=== PATIENT | female | born 1990 | race Caucasian/White ===

== ENCOUNTER 2016-10-16 11:12 | Emergency (ER) | payer OTHER ==
--- NOTE | ~2016-10-16 | CR63 ---
[facility]. [facility] A Service of [facility] & [facility] RADIOLOGY TEXT RESULTS PATIENT: SUSANNA STORM LOCATION: SED : 89 UNIT #: [id number] AGE: [address]: Jignesh Torres MD SEX: F ORDER DR: [id number] [address] [address] [id number] E MR#: [id number] Acc #: [id number] NAME: SUSANNA STORM : 1990 SEX: F STUDY DATE/TIME: 10/16/2016 11:18 UNIT: SED ROOM: STUDY DESCRIPTION: CR Chest 2 View Attending Physician: Jignesh Torres M.D. Ordering Physician: Jignesh Torres M.D. Primary Care Physician: Nicolas Wallace M.D. MEDICAL IMAGING REPORT This report is preliminary unless electronic signature is present. EXAM Two-view chest 10/16/2016 HISTORY 25-year-old female with cough for a few weeks. Shortness of breath. COMPARISON Chest 08/10/2013 FINDINGS 2 views of the chest demonstrate clear lungs. No pleural effusion or pneumothorax. Heart size and mediastinum are normal. Pulmonary vasculature normal. IMPRESSION No acute cardiopulmonary findings. Dictated by... Jose Santana M.D. THIS IS AN ELECTRONICALLY VERIFIED REPORT Jose Santana M.D. at 10/17/2016 8:44 AM MANDY/melissa TD: 10/16/2016 22:33 JOB #: [id number] MEDICAL IMAGING REPORT Page 1 of 1
[~2016-10-16 11:12] MED LIST: ABILIFY PO; ACETAMINOPHEN PO; ADVAIR 2501 DISK W/D PO; ALBUTEROL17 GM INH; ANTI-FUNGAL15 GM TOP; AUGMENTIN; BACTRIM DS TABL1 TA1 PO; BACTRIM DS TABL1 TA2 PO; BENADRYL; BENADRYL25 M1 PO; CAFFEINE200 MG; CLEOCIN150 M2 PO; DICLOFENAC PO; FIORINAL/CODEIN1 CA1 PO; FLEXERIL; FLEXERIL10 M1 PO; FLEXERIL10 MG; IBUPROFEN PO; IBUPROFEN600 MG PO; IBUPROFEN800 MG; IBUPROFEN800 MG PO; LIDOCAINE VISCOU1 ML PO; LORTAB 5-325 M1 EACH; LORTAB 5-325 M1 EACH PO; METHOTREXATE; METHOTREXATE2.5 MG PO; NO MEDICATIONS; OXYCODONE HCL5 M1 PO; PHENERGAN PO; PHENERGAN25 M1 PO; PHENERGAN25 MG PO; PREDNISONE PO; PRENATAL MULTIV1 TA1 PO; PRILOSEC PO; PROMETHAZINE D118 ML PO; PYRIDIUM PO; ROBITUSSIN100 MG/52 PO; TAMIFLU75 M1 PO; TESSALON200 MG PO; TOPAMAX PO; TRAMADOL HCL50 M2 PO; TYLENOL #3 PO; ULTRAM PO; VITANATAL OB +1 EACH PO; VOLTAREN50 MG PO; VOLTAREN75 MG PO; ZANAFLEX4 M1 PO; ZITHROMAX PO; ZOFRAN ODT4 MG PO; [UNRECOGNIZED DRUG - OTHER]; [UNRECOGNIZED DRUG - REMARK]
[2016-10-23] MEDS ORDERED: ZOFRAN PO (21:51)
== END 2016-10-16 12:25 | disposition home or self-care (01) ==
LOC: SED 11:12
DX: S29.012A Strain of muscle and tendon of back wall of thorax, initial encounter (principal); J20.9 Acute bronchitis, unspecified; R09.1 Pleurisy; F17.210 Nicotine dependence, cigarettes, uncomplicated; Z98.51 Tubal ligation status; X58.XXXA Exposure to other specified factors, initial encounter; Y93.89 Activity, other specified; Y92.009 Unspecified place in unspecified non-institutional (private) residence as the place of occurrence of the external cause
CPT/HCPCS: 71020; 94640; 99284

== ENCOUNTER → 2016-10-18 | Day surgery (SDC) | payer OTHER ==
[~2016-10-18] MED LIST changes: +ALBUTEROL17 GM; +DEPAKOTE; +PERCOCET 7.5-31 EACH; +SEROQUEL; +ZOFRAN PO; +ZOLOFT
--- NOTE | ~2016-10-18 | OR ---
Unit #: [id number] #: [id number] Patient: SUSANNA STORM [id number] [address] [place], [place] [address] [id number] O MR#: [id number] NAME: SUSANNA STORM ROOM: Date of Procedure: 10/18/2016 Admission Date: 10/18/2016 Surgeon: Jose Madrid Jr., M.D. : 1990 Attending Physician: Jose Madrid Jr., M.D. Referring Physician: Jose Madrid Jr., M.D. Primary Care Physician: Nicolas Wallace M.D. OPERATIVE REPORT INDICATIONS FOR PROCEDURE The patient is a 25-year-old white female, who has been having intermittent right upper quadrant and mid epigastric abdominal pain compatible with biliary colic. She has documented gallstones. She is brought in this time for laparoscopic cholecystectomy at her request. She understands the procedure including the risks, including that of common duct injury, biliary leak, and bleeding, and intra-abdominal organ injury, and consents. PREOPERATIVE DIAGNOSES Biliary colic with chronic cholecystitis and cholelithiasis. POSTOPERATIVE DIAGNOSES Biliary colic with chronic cholecystitis and cholelithiasis, noting a small contracted gallbladder with multiple large stones. The rest of the internal abdominal exam with the laparoscope was not remarkable. ANESTHESIA General with endotracheal intubation and 0.5% Marcaine with epinephrine locally. PROCEDURE PERFORMED Laparoscopic cholecystectomy. DESCRIPTION OF PROCEDURE The patient was positioned in supine position. After being anesthetized and intubated, she was prepped and draped in routine fashion for laparoscopic cholecystectomy. A small infraumbilical incision was made approximately 1 cm in length. This was carried down to the fascia. The fascia was lifted between 2 Tonie clamps and a Veress needle introduced into the abdomen. The abdomen was then inflated with CO2 gas. A 5-mm port was introduced in the abdomen followed by the camera. There was no evidence of any injury related to introduction of the port of the Veress needle. Brief intra-abdominal exploration was carried out. The patient was noted to have a slightly fatty liver with what appeared to be a whitish chronic inflamed gallbladder. Two 5-mm ports were placed laterally and an 11-mm port just to the right of the upper midline. The gallbladder was lifted. Dissection was carried out the triangle of Calot. Cystic duct and cystic artery were both identified. Cystic duct was small 1 to 2 mm in diameter, was hemoclipped x4 and divided approximately 1 cm from its junction with the common duct. The common duct appeared normal. Cystic artery was identified, hemoclipped x3, and divided. The Unit #: [id number] #: [id number] Patient: SUSANNA STORM gallbladder was then removed from its bed with the hook cautery using a current of 20. After it was released, it was removed through the upper midline incision along with grasping clamp and the port. The port was replaced. The gallbladder sent to pathology and the subhepatic space checked. There was no evidence of any bleeding from the gallbladder bed. The clips on cystic duct and cystic artery were intact with no evidence of any leak or bleeding. At this point, the CO2 was expressed from the abdomen. Sponge count was correct x3 and the fascia in the larger port site was approximated with the neoClose technique. The ports were removed. There was no evidence of any bleeding from the port sites. The port sites were injected with 0.5% Marcaine with epinephrine locally. The wounds were irrigated. After hemostasis achieved with Bovie cautery, the skin edges were approximated with stainless-steel skin clips and skin stapling device. Sterile dressings were applied externally. Estimated blood loss minimal, less than 30 mL. The patient received less than 1000 mL crystalloid solution during the procedure. Sponges and instrument counts were correct x3. No drains used. No complications. The patient was taken to the recovery room with stable vital signs in satisfactory condition. Dictated by... Jose Madrid Jr., M.D. JMB/brittany TD: 10/18/2016 22:52 JOB #: [id number] OPERATIVE REPORT Page 1 of 1 X Jose Madrid MD X PROCEDURE OPERATIVE NOTE
[2016-10-18 10:28] LABS: ALBUMIN SERUM 3.9 g/dL (3.5-5.0); BILIRUBIN,TOTAL 0.4 mg/dL (0.2-2.0); BUN/CREATININE RATIO 16.66; CALCIUM SERUM 9.3 mg/dL (8.4-10.2); CREATININE SERUM 0.6 mg/dL (0.6-1.4); GLOM FILT RATE Estimated 125.8 mL/min (>60); POTASSIUM 4.3 mmol/L (3.5-5.1)
== END | disposition home or self-care (01) ==
LOC: CSUR 09:18
PROVIDERS: Surgery
DX: K80.10 Calculus of gallbladder with chronic cholecystitis without obstruction (principal); K21.9 Gastro-esophageal reflux disease without esophagitis; J45.909 Unspecified asthma, uncomplicated; F17.210 Nicotine dependence, cigarettes, uncomplicated; Z98.51 Tubal ligation status; Z98.890 Other specified postprocedural states
CPT/HCPCS: 80053; 88304; J0131; J0330; J1100; J1170; J1610; J1644; J1885; J2250; J2405; J2710; J3010

== ENCOUNTER 2016-10-19 20:12 | Emergency (ER) | payer OTHER ==
--- NOTE | ~2016-10-19 | CT2 ---
[facility] A Service of [facility] & [facility] RADIOLOGY TEXT RESULTS PATIENT: SUSANNA STORM LOCATION: [facility] : [birth year] UNIT #: [id number] AGE: [address]: Bety Gill MD SEX: F ORDER DR: [id number] [facility] [address] [place], [place] [address] [id number] E MR#: [id number] Acc #: [id number] NAME: SUSANNA STORM : 1990 SEX: F STUDY DATE/TIME: 10/19/2016 21:28 UNIT: [facility] ROOM: STUDY DESCRIPTION: CT Abd and Pelv W Cont Attending Physician: Bety Gill M.D. Ordering Physician: Bety Gill M.D. Primary Care Physician: Nicolas Wallace M.D. MEDICAL IMAGING REPORT This report is preliminary unless electronic signature is present EXAM CT of the abdomen and pelvis with contrast HISTORY Gallbladder surgery yesterday. Patient has been having abdominal pain and bleeding from her incision. TECHNIQUE Axial CT images were obtained from the dome of the diaphragm through the symphysis pubis following the administration of intravenous contrast material. This CT exam was performed with one or more of the following radiation dose reduction techniques: automatic exposure control, adjustment of mA and/or kV according to patient size, and iterative reconstruction. FINDINGS Images through the lung bases demonstrates some bibasilar atelectasis, as well as some mosaic attention which could reflect some air trapping. Patient does have some free intraperitoneal air, likely related to recent surgery. The gallbladder is surgically absent. Common bile duct appears prominent measuring up to 1.5 cm in size. No obvious obstructing lesion is seen. Correlation with liver function test is suggested. Again, patient is status post cholecystectomy. No focal fluid collection is seen within the operative bed. There is some soft tissue stranding within the anterior abdominal wall in keeping with history of recent surgery. Spleen is within normal limits as are the stomach and proximal small bowel. Adrenal glands and pancreas are within normal limits. Kidneys also appear normal. A small amount of blood is seen tracking along the right pericolic gutter, again likely related to recent surgery. Some additional stranding seen within the umbilicus where the patient likely had a STS. [facility] A Service of [facility] RADIOLOGY TEXT RESULTS PATIENT: SUSANNA STORM LOCATION: [facility] : [birth year] UNIT #: [id number] AGE: [address]: Bety Gill MD SEX: F ORDER DR: laparoscopy port. There is some free fluid within the pelvis. Bilateral tubal ligation clips are noted. Urinary bladder appears unremarkable. Ovaries are also within normal limits. I do not see any mechanical bowel obstruction. The appendix is visualized and is within normal limits. Review of bony windows does not demonstrate any aggressive osseous abnormalities. Bilateral pars defects are noted at L5-S1. IMPRESSION 1. Patient is status post cholecystectomy. No focal fluid collections are seen within the operative bed. There is a small amount of intraperitoneal free air in keeping with history of recent surgery. Post-surgical changes are seen within the anterior abdominal wall and along the right flank. Patient does have a small amount of hemorrhagic fluid tracking along the right pericolic gutter. 2. There is free fluid seen within the pelvis. Findings related to recent surgery. 3. The appendix is visualized and is within normal limits. 4. There is dilatation of the common bile duct. Similar findings have been present on exams dating back to 2015. I would suggest correlation with liver function tests. Dictated by... Luma Kirk M.D. THIS IS AN ELECTRONICALLY VERIFIED REPORT Luma Kirk M.D. at 10/20/2016 10:46 AM AFF/pcl TD: 10/19/2016 22:26 JOB #: [id number] MEDICAL IMAGING REPORT Page 1 of 1 COPY
[~2016-10-19 20:12] MED LIST changes: -ALBUTEROL17 GM; -DEPAKOTE; -PERCOCET 7.5-31 EACH; -SEROQUEL; -ZOFRAN PO; -ZOLOFT
[2016-10-19 20:36] LABS: BASOPHIL% 0.3 % (0-2.5); EOSINOPHIL# 0.1 X10e3 (0-0.7); EOSINOPHIL% 0.9 % (0.0-7.0); HEMATOCRIT 35.1 % (35.0-45.0); HEMOGLOBIN 11.3 gm/dL (12.0-16.0); LYMPHOCYTE# 4.2 X10e3 (1.0-3.5); LYMPHOCYTE% 35.5 % (17.0-45.0); MEAN CELL VOLUME 79.7 FL (83-96); MEAN CORPUSCULAR HEMOGLOBIN 25.8 PG (28-34); MEAN CORPUSCULAR HGB CONC 32.4 g/dL (30-36); MEAN PLATELET VOLUME 7.8 FL (6.5-11.5); MONOCYTE# 0.6 X10e3 (0-1.0); MONOCYTE% 5.3 % (3.0-12.0); NEUTROPHIL# 6.8 X10e3 (1.5-7.1); PLATELET COUNT 265 X10e3 (140-420); RED CELL DISTRIBUTION WIDTH 18.6 % (11.0-15.5); WHITE BLOOD COUNT 11.8 X10e3 (4.0-10.5)
[2016-10-19 20:40] LABS: DIFF IND NO
[2016-10-19 21:07] LABS: ALBUMIN SERUM 3.8 g/dL (3.5-5.0); ALKALINE PHOSPHATASE 53 U/L (32-92); ALT (SGPT) 23 U/L (10-40); AST (SGOT) 17 U/L (10-42); BILIRUBIN,TOTAL 0.2 mg/dL (0.2-2.0); BLOOD UREA NITROGEN 10 mg/dL (9-23); CALCIUM SERUM 8.9 mg/dL (8.4-10.2); CARBON DIOXIDE 25 mmol/L (22-31); CHLORIDE 100 mmol/L (100-111); CREATININE SERUM 0.5 mg/dL (0.6-1.4); GLOM FILT RATE Estimated 133.6 mL/min (>60); GLUCOSE FASTING 92 mg/dL (70-110); LIPASE 21 U/L (22-51); POTASSIUM 3.4 mmol/L (3.5-5.1); PROTEIN TOTAL SERUM 6.9 g/dL (6.0-8.3); SODIUM 134 mmol/L (135-145)
[2016-10-19 21:10] LABS: BILIRUBIN, DIRECT <0.1 mg/dL (0.0-0.2); BILIRUBIN,INDIRECT 0.1 mg/dL (0.0-0.9)
[2016-10-23] MEDS ORDERED: ZOFRAN PO (21:51)
== END 2016-10-19 22:36 | disposition home or self-care (01) ==
LOC: CED 20:12
PROVIDERS: Emergency Medicine
DX: G89.18 Other acute postprocedural pain (principal); R10.9 Unspecified abdominal pain; K91.840 Postprocedural hemorrhage of a digestive system organ or structure following a digestive system procedure; Z90.49 Acquired absence of other specified parts of digestive tract; F17.210 Nicotine dependence, cigarettes, uncomplicated
CPT/HCPCS: 74177; 80048; 80076; 83690; 84703; 85025; 96361; 96374; 99284; J1170; Q9967

== ENCOUNTER 2016-10-23 22:03 | Emergency (ER) | payer OTHER ==
--- NOTE | ~2016-10-23 | CT2 ---
[facility] A Service of [facility] & [facility] RADIOLOGY TEXT RESULTS PATIENT: SUSANNA STORM LOCATION: SED : 89 UNIT #: [id number] AGE: [address]: Rinku Angelo MD SEX: F ORDER DR: [id number] [place] [id number] E MR#: [id number] Acc #: [id number] NAME: SUSANNA STORM : 1990 SEX: F STUDY DATE/TIME: 10/23/2016 23:01 UNIT: SED ROOM: STUDY DESCRIPTION: CT Abd and Pelv W Cont Attending Physician: Rinku Angelo M.D. Ordering Physician: Rinku Angelo M.D. Primary Care Physician: Nciolas Wallace M.D. MEDICAL IMAGING REPORT This report is preliminary unless electronic signature is present. EXAM CT abdomen and pelvis with contrast, 10/23/2016 HISTORY 25-year-old female in the ED. Postop cholecystectomy 10/18/2016 complaining of abdomen pain since 10/19/2016 and some bleeding at her incision site. TECHNIQUE CT examination of the abdomen and pelvis was performed with IV contrast and compared with the recent examination of 10/19/2016. GI contrast material was not ordered. This CT exam was performed with one or more of the following radiation dose reduction techniques: automatic exposure control, adjustment of mA and/or kV according to patient size, and iterative reconstruction. FINDINGS ABDOMEN: Stable postop changes recent laparoscopic cholecystectomy. No evidence of significant hematoma or abscess in the cholecystectomy bed, upper abdomen or abdominal wall. There may be some mild inflammation at the periumbilical laparoscopic port site, and there is a small stable umbilical hernia containing abdominal fat. Mild intrahepatic and extrahepatic bile duct dilatation to the level of the ampulla is unchanged, and hepatic duct measures about 1.3 cm today, previously 1.5 cm. Pancreas is negative with no evidence of acute pancreatitis. Liver and spleen are normal in size and appearance. Both kidneys are negative with no evidence of urinary obstruction. Small bowel and colon are normal in caliber and appearance, and the stomach is nondistended. STS. [facility] A Service of [facility] & [facility] RADIOLOGY TEXT RESULTS PATIENT: SUSANNA STORM LOCATION: SED : 89 UNIT #: [id number] AGE: [address]: Rinku Angelo MD SEX: F ORDER DR: PELVIS FINDINGS: Uterus, ovaries, bladder and rectum are within normal limits. No inguinal hernia. Limited lung base images show no active disease in the lower chest. IMPRESSION 1. Postop changes recent laparoscopic cholecystectomy. No evidence of abscess, hematoma or other significant fluid collection in the gallbladder fossa or anterior abdominal wall. 2. Stable mild intrahepatic and extrahepatic bile duct dilatation. 3. No evidence of acute pancreatitis. 4. Probable mild soft tissue inflammation within the anterior abdominal wall at the umbilical laparoscopic port site. Stable small fat-containing umbilical hernia. Dictated by... Juan Garcia M.D. THIS IS AN ELECTRONICALLY VERIFIED REPORT Juan Garcia M.D. at 10/24/2016 4:06 AM HELIO/morena TD: 10/24/2016 02:12 JOB #: [id number] MEDICAL IMAGING REPORT Page 1 of 1
[~2016-10-23 22:03] MED LIST changes: +ZOFRAN PO
[2016-10-23 22:25] LABS: BASOPHIL% 0.4 % (0-2.5); EOSINOPHIL# 0.2 X10e3 (0-0.7); EOSINOPHIL% 2.2 % (0.0-7.0); HEMATOCRIT 37.2 % (35.0-45.0); HEMOGLOBIN 12.3 gm/dL (12.0-16.0); LYMPHOCYTE# 3.2 X10e3 (1.0-3.5); LYMPHOCYTE% 31.7 % (17.0-45.0); MEAN CELL VOLUME 79.5 FL (83-96); MEAN CORPUSCULAR HEMOGLOBIN 26.3 PG (28-34); MEAN CORPUSCULAR HGB CONC 33.1 g/dL (30-36); MEAN PLATELET VOLUME 7.8 FL (6.5-11.5); MONOCYTE# 0.5 X10e3 (0-1.0); MONOCYTE% 5.5 % (3.0-12.0); NEUTROPHIL% 60.2 % (40-75); PLATELET COUNT 277 X10e3 (140-420); RED BLOOD COUNT 4.68 X10e (3.90-5.30); RED CELL DISTRIBUTION WIDTH 18.5 % (11.0-15.5)
[2016-10-23 22:27] LABS: DIFF IND NO
[2016-10-23 22:42] LABS: ALKALINE PHOSPHATASE 58 U/L (32-92); ALT (SGPT) 17 U/L (10-40); AST (SGOT) 12 U/L (10-42); BLOOD UREA NITROGEN 10 mg/dL (9-23); CALCIUM SERUM 9.5 mg/dL (8.4-10.2); CARBON DIOXIDE 28 mmol/L (22-31); CHLORIDE 105 mmol/L (100-111); GLOM FILT RATE Estimated 77.7 mL/min (>60); GLUCOSE FASTING 92 mg/dL (70-110); LIPASE 35 U/L (22-51); POTASSIUM 4.3 mmol/L (3.5-5.1); PROTEIN TOTAL SERUM 7.2 g/dL (6.0-8.3); SODIUM 138 mmol/L (135-145)
[2016-10-23 22:43] LABS: BILIRUBIN, DIRECT <0.1 mg/dL (0.0-0.2); BILIRUBIN,TOTAL <0.1 mg/dL (0.2-2.0)
== END 2016-10-24 00:34 | disposition home or self-care (01) ==
LOC: SED 22:03
PROVIDERS: Emergency Medicine
DX: G89.18 Other acute postprocedural pain (principal); R10.9 Unspecified abdominal pain; R11.2 Nausea with vomiting, unspecified; Z90.49 Acquired absence of other specified parts of digestive tract; Z79.899 Other long term (current) drug therapy
CPT/HCPCS: 36415; 74177; 80048; 80076; 83690; 85025; 96360; 99284; Q9967

== ENCOUNTER 2016-11-18 19:01 | Emergency (ER) | payer OTHER ==
--- NOTE | ~2016-11-18 | CR181 ---
[facility] A Service of [facility] RADIOLOGY TEXT RESULTS PATIENT: SUSANNA STORM LOCATION: SED : [birth year] UNIT #: [id number] AGE: [address]: Ai Carrion SEX: F ORDER DR: [id number] [address] [address] [id number] E MR#: [id number] Acc #: [id number] NAME: SUSANNA STORM : 1990 SEX: F STUDY DATE/TIME: 11/18/2016 19:25 UNIT: SED ROOM: STUDY DESCRIPTION: CR Lumbar Spine 2 or 3 Views Attending Physician: Ai Carrion Pa-C Ordering Physician: Staff Doctor Not On Primary Care Physician: Nicolas Wallace M.D. MEDICAL IMAGING REPORT This report is preliminary unless electronic signature is present. EXAM Lumbar spine, 3 views. HISTORY Chronic back pain, worse over the last 4 days, injured opening garage door this past Monday. COMPARISON CT abdomen and pelvis, 10/23/2016. FINDINGS AP, lateral and cone lateral views of the lumbar spine demonstrates bilateral L5 pars defects without spondylolisthesis. This represent a chronic pars defects and was noted on the patient's study from 10/23/2016. Disc spaces maintained. Bilateral tubal ligation clips are noted. Normal spinal alignment. IMPRESSION Bilateral L5 pars defects. These are not clearly visible on the patient's lumbar spine films of May 2013, and may have been faintly present on the patient's study in 2013, but appears more prominent on today's study. This may be exacerbated due to stress. I suspect these are a major contributing fact to the patient's back pain. Dictated by... Amalia Butt M.D. THIS IS AN ELECTRONICALLY VERIFIED REPORT Amalia Butt M.D. at 11/21/2016 6:07 AM [place] [facility] A Service of [facility] RADIOLOGY TEXT RESULTS PATIENT: SUSANNA STORM LOCATION: SED : [birth year] UNIT #: [id number] AGE: [address]: Ai Carrion SEX: F ORDER DR: TD: 11/18/2016 23:51 JOB #: [id number] MEDICAL IMAGING REPORT Page 1 of 1
[2016-11-18] MEDS ORDERED: DEPAKOTE (19:09)
[2016-11-18] MEDS ORDERED: SEROQUEL (19:09)
[2016-11-18] MEDS ORDERED: ALBUTEROL17 GM (19:09)
[2016-11-18] MEDS ORDERED: ZOLOFT (19:09)
== END 2016-11-18 20:07 | disposition home or self-care (01) ==
LOC: SED 19:01
DX: S39.92XA Unspecified injury of lower back, initial encounter (principal); Z90.49 Acquired absence of other specified parts of digestive tract; F17.210 Nicotine dependence, cigarettes, uncomplicated; X58.XXXA Exposure to other specified factors, initial encounter; Y92.009 Unspecified place in unspecified non-institutional (private) residence as the place of occurrence of the external cause
CPT/HCPCS: 72100; 96372; 99283; J1040; J1885

== ENCOUNTER 2017-01-01 09:18 | Emergency (ER) | payer OTHER ==
[~2017-01-01 09:18] MED LIST changes: +ALBUTEROL17 GM; +DEPAKOTE; +SEROQUEL; +ZOLOFT
== END 2017-01-01 16:54 | disposition left against medical advice (07) ==
LOC: CED 09:18
DX: Z53.21 Procedure and treatment not carried out due to patient leaving prior to being seen by health care provider (principal)

== ENCOUNTER 2017-01-03 17:58 | Emergency (ER) | payer OTHER ==
[2017-01-03] MEDS ORDERED: ZOLOFT (18:11)
[2017-01-03] MEDS ORDERED: SEROQUEL (18:11)
[2017-01-03] MEDS ORDERED: IBUPROFEN PO (18:11)
[2017-01-03] MEDS ORDERED: DEPAKOTE (18:11)
[2017-01-03] MEDS ORDERED: PERCOCET 7.5-31 EACH (18:11)
== END 2017-01-03 18:47 | disposition home or self-care (01) ==
LOC: SED 17:58
DX: G89.18 Other acute postprocedural pain (principal); M79.672 Pain in left foot; F17.200 Nicotine dependence, unspecified, uncomplicated
CPT/HCPCS: 99283

== ENCOUNTER 2017-01-08 21:59 | Emergency (ER) | payer OTHER ==
--- NOTE | ~2017-01-08 | CR72 ---
[facility] A Service of [facility] & [facility] RADIOLOGY TEXT RESULTS PATIENT: SUSANNA STORM LOCATION: SED : [birth year] UNIT #: [id number] AGE: [address]: Bety Gill MD SEX: F ORDER DR: [id number] [address] [address] [id number] E MR#: [id number] Acc #: [id number] NAME: SUSANNA STORM : 1990 SEX: F STUDY DATE/TIME: 01/08/2017 23:14 UNIT: SED ROOM: STUDY DESCRIPTION: CR Chest Single View Portable Attending Physician: Bety Gill M.D. Ordering Physician: Bety Gill M.D. Primary Care Physician: Nicolas Wallace M.D. MEDICAL IMAGING REPORT This report is preliminary unless electronic signature is present. EXAM Portable chest INDICTIONS Postop fever starting today. DATE: 01/08/17 COMPARISON: 10/16/16 FINDINGS A portable view of the chest was obtained. The heart size and vascularity are normal and the lungs are clear. The bones are unremarkable. IMPRESSION No active disease. Dictated by... Jignesh Arvizu M.D. THIS IS AN ELECTRONICALLY VERIFIED REPORT Jignesh Arvizu M.D. at 01/09/2017 1:37 PM ROGELIO/lyssa TD: 01/09/2017 12:36 JOB #: [id number] MEDICAL IMAGING REPORT Page 1 of 1
[~2017-01-08 21:59] MED LIST changes: +PERCOCET 7.5-31 EACH
[2017-01-08 23:31] LABS: URINE APPEARANCE CLEAR; URINE BILIRUBIN NEG (NEG); URINE BLOOD NEG (NEG); URINE COLOR YELLOW; URINE GLUCOSE NEG (NORM); URINE KETONE NEG (NEG); URINE LEUKOCYTE ESTERASE TRACE (NEG); URINE NITRATE NEG (NEG); URINE PROTEIN NEG (NEG); URINE UROBILINOGEN 0.2 MG/DL (NORM)
[2017-01-08 23:35] LABS: BASOPHIL# 0.1 X10e3 (0-0.3); BASOPHIL% 0.5 % (0-2.5); DIFF IND NO; EOSINOPHIL# 0.2 X10e3 (0-0.7); EOSINOPHIL% 2.4 % (0.0-7.0); HEMATOCRIT 36.4 % (35.0-45.0); LYMPHOCYTE# 3.7 X10e3 (1.0-3.5); LYMPHOCYTE% 34.8 % (17.0-45.0); MEAN CELL VOLUME 81.8 FL (83-96); MEAN CORPUSCULAR HGB CONC 33.1 g/dL (30-36); MEAN PLATELET VOLUME 7.8 FL (6.5-11.5); MONOCYTE# 0.6 X10e3 (0-1.0); MONOCYTE% 6.1 % (3.0-12.0); NEUTROPHIL# 5.9 X10e3 (1.5-7.1); NEUTROPHIL% 56.2 % (40-75); PLATELET COUNT 340 X10e3 (140-420); RED BLOOD COUNT 4.44 X10e (3.90-5.30); RED CELL DISTRIBUTION WIDTH 16.7 % (11.0-15.5); WHITE BLOOD COUNT 10.5 X10e3 (4.0-10.5)
[2017-01-08 23:37] LABS: URINE SOURCE CLEAN CATCH
[2017-01-08 23:38] LABS: CULTURE INDICATED? NO; MICRO INDICATED? YES; URINE BACTERIA NEG (NEG); URINE RBC 0-2 /[HPF] (0-2); URINE SQUAMOUS EPITHELIAL CELL MODERATE /[HPF]
[2017-01-08 23:43] LABS: AMPHETAMINE NEG (NEG); BARBITURATES NEG (NEG); BENZODIAZEPINES NEG (NEG); COCAINE NEG (NEG); MARIJUANA NEG (NEG); OPIATES POS (NEG); TRICYCLIC ANTIDEPRESSANTS NEG (NEG); U METHADONE NEG (NEG)
[2017-01-08 23:50] LABS: ALBUMIN SERUM 3.9 g/dL (3.5-5.0); BILIRUBIN, DIRECT 0.1 mg/dL (0.0-0.2); BILIRUBIN,INDIRECT 0.3 mg/dL (0.0-0.9); BILIRUBIN,TOTAL 0.4 mg/dL (0.2-2.0); BUN/CREATININE RATIO 17.14; CALCIUM SERUM 9.4 mg/dL (8.4-10.2); CREATININE SERUM 0.7 mg/dL (0.6-1.4); GLOM FILT RATE Estimated 118.7 mL/min (>60); PROTEIN TOTAL SERUM 7.2 g/dL (6.0-8.3)
== END 2017-01-09 00:55 | disposition home or self-care (01) ==
LOC: SED 21:59
PROVIDERS: Emergency Medicine
DX: G89.18 Other acute postprocedural pain (principal); M79.672 Pain in left foot
CPT/HCPCS: 29515; 36415; 71010; 80048; 80076; 80307; 81003; 84703; 85025; 96372; 99284; J1885

== ENCOUNTER 2017-02-16 21:09 | Emergency (ER) | payer OTHER ==
[~2017-02-16] VITALS: Ht 165.1 cm; Wt 78.0 kg
--- NOTE | ~2017-02-16 | CR126 ---
[facility] A Service of [facility] & [facility] RADIOLOGY TEXT RESULTS PATIENT: SUSANNA STORM LOCATION: SED : 89 UNIT #: [id number] AGE: [address]: Sebastien Mathur MD SEX: F ORDER DR: [id number] [place] [id number] E MR#: [id number] Acc #: [id number] NAME: SUSANNA STORM : 1990 SEX: F STUDY DATE/TIME: 02/16/20172242 UNIT: SED ROOM: STUDY DESCRIPTION: CR Foot Complete Min 3 View Lt Attending Physician: Sebastien Mathur M.D. Ordering Physician: Sebastien Mathur M.D. Primary Care Physician: Nicolas Wallace M.D. MEDICAL IMAGING REPORT This report is preliminary unless electronic signature is present. EXAM Left foot, 2242. INDICATION Left foot pain tonight after dropping a gallon of milk on the foot. FINDINGS Three views of the left foot are compared with 12/17/2016. Midfoot hardware is unchanged. There is also a screw in the neck of the second metatarsal. No acute fracture or malalignment is seen. Patient has had a bunion removed from the first metatarsal. IMPRESSION Postoperative change. No acute findings in the foot. Dictated by... Dhiraj Albright Jr., M.D. THIS IS AN ELECTRONICALLY VERIFIED REPORT Dhiraj Albright Jr., M.D. at 02/20/2017 5:49 AM LAKE/comfort TD: 02/17/2017 10:13 JOB #: [id number] MEDICAL IMAGING REPORT Page 1 of 1
== END 2017-02-16 23:31 | disposition home or self-care (01) ==
LOC: SED 21:09
DX: S90.32XA Contusion of left foot, initial encounter (principal); Z79.899 Other long term (current) drug therapy; F17.200 Nicotine dependence, unspecified, uncomplicated; W20.8XXA Other cause of strike by thrown, projected or falling object, initial encounter; Y92.009 Unspecified place in unspecified non-institutional (private) residence as the place of occurrence of the external cause
CPT/HCPCS: 73630; 99283